=== PATIENT | female | born 1945 | race Caucasian/White ===

== ENCOUNTER 2022-02-28 12:32 | Outpatient (CLI) | payer MEDICARE, BC ==
[2022-02-28] MEDS ORDERED: Iopamidol 370 76% 100 ML VIAL ONE (12:38)
== END 2022-02-28 12:33 | disposition home or self-care (01) ==
LOC: CSHCT 12:32
PROVIDERS: ATTEND Family Medicine
DX: I71.01 Dissection of thoracic aorta (principal); I35.1 Nonrheumatic aortic (valve) insufficiency; I51.7 Cardiomegaly; I51.9 Heart disease, unspecified; Z95.0 Presence of cardiac pacemaker
CPT/HCPCS: 71275; 74174; 82565; 93306; Q9967